=== PATIENT | female | born 1970 | race Caucasian/White ===

== ENCOUNTER 2016-06-30 14:40 | Emergency (ER) | payer OTHER ==
[~2016-06-30] VITALS: Wt 128.0 kg
[~2016-06-30 14:40] MED LIST: BENA20TA48 PO; D-ME473S18 PO; IBUP-1542 PO; OMEP20CA16 PO
[2016-06-30] MEDS ORDERED: LIDOCAINE 1% (MDV) 20 ML INJ SC ONE (19:00)
[2016-06-30] MEDS ORDERED: HYDROCODONE/APAP (10/325) TAB PO ONE (19:00)
[2016-06-30] MEDS ORDERED: HYDR-906 PO (20:10)
[2016-06-30] MEDS ORDERED: HYDR25SU23 PR (20:10)
[2016-06-30] MEDS ORDERED: CEPH-443 PO (20:11)
[2016-06-30] MEDS ORDERED: BACTDS PO (20:11)
[2016-06-30] MEDS ORDERED: DOCU-144 PO (20:12)
[2016-06-30] MEDS ORDERED: POLY17PO6 PO (20:12)
--- NOTE | 2016-06-30 20:18 | ERD ---
ER Documentation Chief Complaint Date/Time DATE: 06/30/16 TIME: 20:13 Chief Complaint HEMMRHOIDS FOR THE PAST 4 DAYS. GETTING WORSE WITH PAIN AND MILD BLEEDING HPI This 46-year-old female who presents to emergency department today complaining of hemorrhoids for the past 4 days. Patient states the pain is getting worse and she has had some mild bleeding. She has had some mild constipation because of the pain. Denies any fevers or chills. ROS All systems reviewed and are negative except as per history of present illness. Medications Home Meds Active Scripts Docusate Sodium* (Colace*) 100 Mg Capsule, 100 MG PO TID, #30 CAP Prov:MCKAYLA YOUSSEFC 06/30/16 Polyethylene Glycol* (Miralax*) 17 Gm Powd.pack, 17 GM PO DAILY, #15 Prov:MCKAYLA YOUSSEFC 06/30/16 Sulfamethoxazole-Trimethoprim* (Bactrim* DS) 800-160 Mg Tab, 1 TAB PO BID for 7 Days, TAB Prov:MCKAYLA YOUSSEF PA-C 06/30/16 Cephalexin* (Keflex*) 500 Mg Capsule, 500 MG PO QID for 7 Days, CAP Prov:PROMCKAYLA SHAFERC 06/30/16 Hydrocodone/Acetaminophen ([place] 5-325 Tablet) 1 Each Tablet, 1 TAB PO Q6H Y for PAIN, #20 TAB Prov:MCKAYLA YOUSSEFC 06/30/16 Hydrocortisone Acetate (Anusol-Hc) 25 Mg Supp.rect, 1 SUPP OR BID Y for HEMORROID PAIN/ITCHING, #12 SUPP.RECT Prov:MCKAYLA YOUSSEFC 06/30/16 Dextromethorphan Hb-Promethazine Hcl (Promethazine DM Syrup) 473 Ml Syrup, 10 ML PO Q6H Y for COUGH, #4 OZ Prov:BERNARD ALMANZA MD 02/27/16 Ibuprofen* (Motrin*) 600 Mg Tab, 600 MG PO Q6H Y for PAIN AND OR ELEVATED TEMP, #30 TAB Prov:BERNARD ALMANZA MD 02/27/16 Reported Medications Omeprazole* (Omeprazole*) Unknown Strength Capsule.dr, MG PO DAILY, #30 CAP 02/27/16 Benazepril Hcl* (Benazepril Hcl*) 20 Mg Tablet, 20 MG PO DAILY, TAB 11/04/14 Allergies Allergies: Coded Allergies: ketorolac (Verified Allergy, Unknown, 06/04/16) PMhx/Soc History of Surgery: No Anesthesia Reaction: No Hx Neurological Disorder: No Hx Respiratory Disorders: No Hx Cardiac Disorders: No Hx Psychiatric Problems: No Hx Miscellaneous Medical Probl: No Hx Alcohol Use: No Hx Substance Use: No Hx Tobacco Use: No Smoking Status: Never smoker Physical Exam Vitals Vital Signs Date Time Temp Pulse Resp B/P Pulse Ox O2 Delivery O2 Flow Rate FiO2 06/30/16 16:35 98.8 101 06/30/16 14:46 99.2 129 20 138/72 97 Physical Exam Const: Obese, mild distress Head: Atraumatic Eyes: Normal Conjunctiva ENT: Normal External Ears, Nose and Mouth. Neck: Full range of motion..~ No meningismus. Resp: Clear to auscultation bilaterally Cardio: Regular rate and rhythm, no murmurs Abd: Soft, non tender, non distended. Normal bowel sounds : Rectal exam with evidence of hemorrhoid on right side of anus with fluctuance and mild bleeding. Localized erythema. Skin: No petechiae or rashes Neur: Awake and alert Psych: Normal Mood and Affect Results 24 hrs Current Medications Medications (Trade) Dose Ordered Sig/Jonathan Route PRN Reason Start Time Stop Time Status Last Admin Dose Admin Acetaminophen/ Hydrocodone Bitart ([place] (10/325)) 1 tab ONCE ONCE PO 06/30/16 19:00 06/30/16 19:01 DC 06/30/16 18:54 Lidocaine (Xylocaine 1% (Mdv) 20 ml) 20 ml ONCE ONCE SC 06/30/16 19:00 06/30/16 19:01 DC Procedures/MDM His is a 46 year old female who presents to the emergency department today for complaints of hemorrhoids for the past 4 days. On physical exam patient did have evidence of a hemorrhoid however I did have concern that this could also possibly be an abscess. I discussed the patient with Dr. Campos and he has seen and evaluated the patient and he feels it is best to open the area. I did explain the risks and benefits to the patient and the patient agree to proceed. Patient has had this in the past was very concerned about pain. Patient was given Hamilton prior to the procedure. Abscess Incision and Drainage with irrigation by me: Location: Rectal Anesthesia: [Local 1% Lidocaine] re-cc Technique: [11 blade scalpel used to make a 1cm incision in the abscess. Irrigated. Disrupted loculations w/ instrumentation] Packing: [None] Complications: [Neurovascularly intact post procedure] Risks and benefits of the procedure were explained to the patient and they agreed to proceed. Area was prepped in the usual sterile fashion. Patient tolerated the procedure well. There were no complications. Patient's skin symptoms have stabilized while they have been evaluated in the department and are appropriate for outpatient care and work up. Exam and w/u not consistent w/ sepsis, deep space infection, or foreign body. 48 hour wound check. Scar minimization instructions given. A small amount of thrombosed hemorrhoid was removed. There was also some purulent drainage that was removed from the area. Patient will be given a prescription for Hamilton for home. Of also given a prescription for Anusol, Keflex and Bactrim, MiraLAX and Colace. At this time the patient is stable for discharge and outpatient management. Patient should follow up with their PCP in the next 1-2 days. They may return to the emergency department sooner for any persistent or worsening of symptoms. Patient understood and agreed with the plan. Departure Diagnosis: Primary Impression: External hemorrhoid, thrombosed Condition: Fair Patient Instructions: Thrombosed Hemorrhoids, Hemorrhoids Additional Instructions: Llame al doctor MAANA y jamal isaak JOE PARA DENTRO DE 1-2 SANCHEZ.Dgale a la secretaria que nosotros le instruimos hacer esta joe.Avise o llame si jeong condicin se empeora antes de la joe. Regresa aqui si peor o no mejor. Use Anusol for pain Take Hamilton for severe pain and otherwise take Tylenol Take Keflex and Bactrim for infection Take MiraLAX and Colace for constipation and stool softener MCKAYLA YOUSSEF PA-C Jun 30, 2016 20:18
[2016-06-30 20:41] VITALS: BP 140/76; PULSE 100; RESP 20; TEMP 98.9
== END 2016-06-30 20:44 | disposition home or self-care (01) ==
LOC: FTE 14:40
DX: K64.5 Perianal venous thrombosis (principal)
CPT/HCPCS: 45005; Z7502; Z7610

== ENCOUNTER 2017-04-03 17:49 | Emergency (ER) | payer OTHER ==
[~2017-04-03] VITALS: Ht 170.2 cm; Wt 127.5 kg
[~2017-04-03 17:49] MED LIST changes: +BACTDS PO; +CEPH-443 PO; +DOCU-144 PO; +HYDR-906 PO; +HYDR25SU23 PR; +POLY17PO6 PO
[2017-04-03 18:09] VITALS: Ht 170.2 cm; Wt 127.5 kg
[2017-04-03] MEDS ORDERED: morphine 4 MG/ML VIAL IV STA ×2 (18:50→21:27)
[2017-04-03] MEDS ORDERED: SOD CHLORIDE 0.9% 1,000 ML IV STA (18:50)
[2017-04-03] MEDS ORDERED: ONDANSETRON 4 MG INJ IV STA ×2 (18:50→21:27)
--- NOTE | 2017-04-03 21:06 | RADRPT ---
PROCEDURE: CT abdomen and pelvis without contrast. CLINICAL INDICATION: Right lower back pain radiating to the front of the abdomen TECHNIQUE: CT scan of the abdomen and pelvis without contrast was performed. Sagittal and coronal reformatted images were obtained from the axial source images. One or more of the following dose re duction techniques were used: Automated exposure control, adjustment of the mA and/or kV according t o patient size, use of iterative reconstruction technique. CTDI = 23.65 mGy; DLP = 1386.47 mGy-cm COMPARISON: None. FINDINGS: Visualized lower thorax: Mild dependent left lower lobe subsegmental atelectasis is present. There is no evidence for pleural effusion. Liver, gallbladder, pancreas and spleen: Hepatomegaly of 21.7 cm is present with normal liver conto ur and attenuation. There is no evidence for a liver mass or ductal dilatation. Multiple calcified gallstones are present without evidence of cholecystitis. No common bile duct abnormality is demon strated. The pancreas is unremarkable. The spleen is normal in size. Adrenal glands and genitourinary system: The adrenal glands are normal bilaterally. The kidneys are normal and size, contour and attenuation with no evidence for masses, calculi or hydronephrosis. T he ureters are unremarkable. No urinary bladder abnormality is demonstrated. Lobulated contour to the uterus likely reflects leiomyomata. A right ovarian/adnexal cyst is approximately 2.4 cm. There is no evidence of free fluid in the cul-de-sac. Gastrointestinal system: The stomach is normal in caliber with no abnormality of significance. The small bowel is normal in caliber with no ileus, obstruction or wall thickening. The appendix and s urrounding fat are within the limits of normal. Severe extensive diverticular disease throughout th e colon is present. A small amount of stranding of the fat posterior to the distal descending colon is concerning for a subtle diverticulitis. There is no evidence of perforation or abscess. Peritoneum, retroperitoneum, lymph nodes and vessels: The abdominal aorta is normal in caliber. The re is no evidence for atherosclerotic calcification. The inferior vena cava is unremarkable. There is no evidence for adenopathy or mass. There is no ascites. No pneumoperitoneum is present. Osseous structures and musculoskeletal findings: There is no fracture, lytic or blastic lesion. Julianna dging syndesmophytes of the visualized thoracic and upper lumbar spine are present. There is no evid ence of acute osseous abnormality No muscular abnormality or soft tissue pathology is present. RPTAT:HJJR IMPRESSION: 1. Extensive diverticular disease of the colon with subtle stranding of the fat posterior to the dis shankar descending segment concerning for diverticulitis without perforation or abscess. 2. Cholelithiasis without evidence of cholecystitis. 3. Hepatomegaly. 4. Simple right ovarian cyst and probable leiomyomatous uterus. Physician Angelo Date Time Electronically viewed and signed by Physician Angelo on 04/03/2017 21:06 JR/
[2017-04-03] MEDS ORDERED: CIPROFLOXACIN 500 MG TAB PO ONE (21:30)
[2017-04-03] MEDS ORDERED: metroNIDAZOLE 500 MG TAB PO ONE (21:30)
[2017-04-03] MEDS ORDERED: METR500T PO (21:42)
[2017-04-03] MEDS ORDERED: HYDR-906 PO (21:42)
[2017-04-03] MEDS ORDERED: ONDA4TAB14 PO (21:42)
[2017-04-03] MEDS ORDERED: CIPR500T4 PO (21:42)
--- NOTE | 2017-04-07 12:18 | ERD ---
ER Documentation Chief Complaint Chief Complaint RT LOWER BACK PAIN RADIATING TO FRONT ABDOMIN X5 DAYS W/VOMITTING HPI Patient is a 46-year-old female presenting to the emergency department with complaints of right lower back pain radiating to her front abdomen intermittently, worsening now. Last menstrual cycle was 03-20-2017. She did have nausea and vomiting initially but this is resolved. She denies fevers, chills, or other symptoms currently. ROS All systems reviewed and are negative except as per history of present illness. Medications Home Meds Active Scripts Ondansetron (Ondansetron Odt) 4 Mg Tab.rapdis, 4 MG PO Q6H Y for NAUSEA AND/OR VOMITING, #10 TAB Prov:BECKY POE PA-C 04/03/17 Hydrocodone/Acetaminophen ([place] 5-325 Tablet) 1 Each Tablet, 1 TAB PO Q6H Y for PAIN, #12 TAB Prov:BECKY POE PA-C 04/03/17 Metronidazole* (Flagyl*) 500 Mg Tablet, 500 MG PO TID for 10 Days, #30 TAB Prov:BECKY POE PA-C 04/03/17 Ciprofloxacin Hcl* (Ciprofloxacin Hcl*) 500 Mg Tablet, 500 MG PO BID for 10 Days , #20 TAB Prov:BECKY POE PA-C 04/03/17 Docusate Sodium* (Colace*) 100 Mg Capsule, 100 MG PO TID, #30 CAP Prov:MCKAYLA YOUSSEF PA-C 06/30/16 Polyethylene Glycol* (Miralax*) 17 Gm Powd.pack, 17 GM PO DAILY, #15 Prov:MCKAYLA YOUSSEF PA-C 06/30/16 Sulfamethoxazole-Trimethoprim* (Bactrim* DS) 800-160 Mg Tab, 1 TAB PO BID for 7 Days, TAB Prov:MCKAYLA YOUSSEF PA-C 06/30/16 Cephalexin* (Keflex*) 500 Mg Capsule, 500 MG PO QID for 7 Days, CAP Prov:MCKAYLA YOUSSEF PA-C 06/30/16 Hydrocodone/Acetaminophen ([place] 5-325 Tablet) 1 Each Tablet, 1 TAB PO Q6H Y for PAIN, #20 TAB Prov:MCKAYLA YOUSSEF PA-C 06/30/16 Hydrocortisone Acetate (Anusol-Hc) 25 Mg Supp.rect, 1 SUPP CA BID Y for HEMORROID PAIN/ITCHING, #12 SUPP.RECT Prov:MCKAYLA YOUSSEF PA-C 06/30/16 Dextromethorphan Hb-Promethazine Hcl (Promethazine DM Syrup) 473 Ml Syrup, 10 ML PO Q6H Y for COUGH, #4 OZ Prov:BERNARD ALMANZA MD 02/27/16 Ibuprofen* (Motrin*) 600 Mg Tab, 600 MG PO Q6H Y for PAIN AND OR ELEVATED TEMP, #30 TAB Prov:BERNARD ALMANZA MD 02/27/16 Reported Medications Omeprazole* (Omeprazole*) Unknown Strength Capsule.dr, MG PO DAILY, #30 CAP 02/27/16 Benazepril Hcl* (Benazepril Hcl*) 20 Mg Tablet, 20 MG PO DAILY, TAB 11/04/14 Allergies Allergies: Coded Allergies: ketorolac (Verified Allergy, Unknown, 06/04/16) PMhx/Soc History of Surgery: Yes (hemorrhoids) Anesthesia Reaction: No Hx Neurological Disorder: No Hx Respiratory Disorders: No Hx Cardiac Disorders: No Hx Psychiatric Problems: No Hx Miscellaneous Medical Probl: No Hx Alcohol Use: No Hx Substance Use: No Hx Tobacco Use: No Smoking Status: Never smoker Physical Exam Vitals Vital Signs Date Time Temp Pulse Resp B/P Pulse Ox O2 Delivery O2 Flow Rate FiO2 04/03/17 18:09 99.1 77 18 154/72 97 Physical Exam Const: Nontoxic, well-appearing female in mild discomfort secondary to pain. Head: Atraumatic Eyes: Normal Conjunctiva ENT: Normal External Ears, Nose and Mouth. Neck: Full range of motion..~ No meningismus. Resp: Clear to auscultation bilaterally Cardio: Regular rate and rhythm, no murmurs Abd: Soft, generalized abdominal tenderness, no rebound tenderness or guarding, no McBurney's point tenderness, non distended. Normal bowel sounds Skin: No petechiae or rashes Back: No midline or flank tenderness Ext: No cyanosis, or edema Neur: Awake and alert Psych: Normal Mood and Affect Result Diagram: 04/03/17190504/03/171905 Results 24 hrs Laboratory Tests Test 04/03/17 19:06 White Blood Count 7.810^3/ul Red Blood Count 4.4310^6/ul Hemoglobin 11.7g/dl Hematocrit 37.7% Mean Corpuscular Volume 85.1fl Mean Corpuscular Hemoglobin 26.4pg Mean Corpuscular Hemoglobin Concent 31.0g/dl Red Cell Distribution Width 14.0% Platelet Count 93942^3/UL Mean Platelet Volume 9.6fl Neutrophils % 49.6% Lymphocytes % 36.8% Monocytes % 7.6% Eosinophils % 4.9% Basophils % 1.0% Nucleated Red Blood Cells % 0.0/100WBC Neutrophils # 3.910^3/ul Lymphocytes # 2.910^3/ul Monocytes # 0.610^3/ul Eosinophils # 0.410^3/ul Basophils # 0.110^3/ul Nucleated Red Blood Cells # 0.010^3/ul Prothrombin Time 12.7Sec Prothrombin Time Ratio 1.0 INR International Normalized Ratio 0.95 Activated Partial Thromboplast Time 28.4Sec Urine Color YELLOW Urine Clarity SLIGHTLY CLOUDY Urine pH 5.0 Urine Specific [place] 1.031 Urine Ketones TRACEmg/dL Urine Nitrite NEGATIVEmg/dL Urine Bilirubin 1+mg/dL Urine Urobilinogen 2+mg/dL Urine Leukocyte Esterase NEGATIVELeu/ul Urine Microscopic RBC 3/HPF Urine Microscopic WBC 2/HPF Urine Squamous Epithelial Cells FEW/HPF Urine Calcium Oxalate Crystals FEW/HPF Urine Mucus MANY/HPF Urine Hemoglobin NEGATIVEmg/dL Urine Glucose NEGATIVEmg/dL Urine Total Protein NEGATIVEmg/dl Sodium Level 146mmol/L Potassium Level 3.9mmol/L Chloride Level 107mmol/L Carbon Dioxide Level 28mmol/L Anion Gap 15 Blood Urea Nitrogen 12mg/dl Creatinine 0.69mg/dl Glucose Level 88mg/dl Calcium Level 8.6mg/dl Total Bilirubin 0.4mg/dl Direct Bilirubin 0.00mg/dl Indirect Bilirubin 0.4mg/dl Aspartate Amino Transf (AST/SGOT) 15IU/L Alanine Aminotransferase (ALT/SGPT) 26IU/L Alkaline Phosphatase 83IU/L Total Protein 7.2g/dl Albumin 4.4g/dl Globulin 2.80g/dl Albumin/Globulin Ratio 1.57 Lipase 124U/L Current Medications Medications (Trade) Dose Ordered Sig/Jonathan Route PRN Reason Start Time Stop Time Status Last Admin Dose Admin Sodium Chloride (NS) 1,000 ml @ 1,000 mls/hr Q1H STAT IV 04/03/17 18:50 04/03/17 19:49 DC 04/03/17 19:11 Morphine Sulfate (morphine) 4 mg ONCE STAT IV 04/03/17 18:50 04/03/17 18:51 DC 04/03/17 19:11 Ondansetron HCl (Zofran Inj) 4 mg ONCE STAT IV 04/03/17 18:50 04/03/17 18:51 DC 04/03/17 19:11 Morphine Sulfate (morphine) 4 mg ONCE STAT IV 04/03/17 21:27 04/03/17 21:29 DC 04/03/17 21:42 Ondansetron HCl (Zofran Inj) 4 mg ONCE STAT IV 04/03/17 21:27 04/03/17 21:29 DC 04/03/17 21:46 Metronidazole (Flagyl) 500 mg ONCE ONCE PO 04/03/17 21:30 04/03/17 21:31 DC 04/03/17 22:10 Ciprofloxacin (Cipro) 500 mg ONCE ONCE PO 04/03/17 21:30 04/03/17 21:31 DC 04/03/17 22:10 Procedures/MDM 46-year-old female presents to the emergency department with complaints of abdominal pain with radiation to the back. Patient was placed on a gurney, IV line established, she was given IV morphine, IV Zofran, IV fluids. On reevaluation she was feeling improved. CBC showed no leukocytosis or anemia. Chemistry panel was within normal limits. Urinalysis showed no signs of proteinuria or urinary tract infection. CT scan of the abdomen was concerning for diverticulitis, which the patient has never been diagnosed with before. She is given p.o. Flagyl and p.o. Cipro first doses here, and given prescriptions as an outpatient. Believe the patient is suitable for outpatient management since she had no leukocytosis, pain is improved after treatment, she was afebrile. I discussed the case with the attending physician, Dr. Ham Sargent who is in agreement. No evidence of life-threatening pathology at time of discharge. Pt/family in agreement with discharge plan/diagnosis. Pt/family advised to return immediately with any new or worsening symptoms. Follow-up with primary care physician within the next 1-2 days. Disclaimer: Inadvertent spelling and grammatical errors are likely due to EHR/ dictation software use and do not reflect on the overall quality of patient care. Also, please note that the electronic time recorded on this note does not necessarily reflect the actual time of the patient encounter. PROCEDURE: CT abdomen and pelvis without contrast. CLINICAL INDICATION: Right lower back pain radiating to the front of the abdomen TECHNIQUE: CT scan of the abdomen and pelvis without contrast was performed. Sagittal and coronal reformatted images were obtained from the axial source images. One or more of the following dose reduction techniques were used: Automated exposure control, adjustment of the mA and/or kV according to patient size, use of iterative reconstruction technique. CTDI = 23.65 mGy; DLP = 1386.47 mGy-cm COMPARISON: None. FINDINGS: Visualized lower thorax: Mild dependent left lower lobe subsegmental atelectasis is present. There is no evidence for pleural effusion. Liver, gallbladder, pancreas and spleen: Hepatomegaly of 21.7 cm is present with normal liver contour and attenuation. There is no evidence for a liver mass or ductal dilatation. Multiple calcified gallstones are present without evidence of cholecystitis. No common bile duct abnormality is demonstrated. The pancreas is unremarkable. The spleen is normal in size. Adrenal glands and genitourinary system: The adrenal glands are normal bilaterally. The kidneys are normal and size, contour and attenuation with no evidence for masses, calculi or hydronephrosis. The ureters are unremarkable. No urinary bladder abnormality is demonstrated. Lobulated contour to the uterus likely reflects leiomyomata. A right ovarian/adnexal cyst is approximately 2.4 cm. There is no evidence of free fluid in the cul-de-sac. Gastrointestinal system: The stomach is normal in caliber with no abnormality of significance. The small bowel is normal in caliber with no ileus, obstruction or wall thickening. The appendix and surrounding fat are within the limits of normal. Severe extensive diverticular disease throughout the colon is present. A small amount of stranding of the fat posterior to the distal descending colon is concerning for a subtle diverticulitis. There is no evidence of perforation or abscess. Peritoneum, retroperitoneum, lymph nodes and vessels: The abdominal aorta is normal in caliber. There is no evidence for atherosclerotic calcification. The inferior vena cava is unremarkable. There is no evidence for adenopathy or mass. There is no ascites. No pneumoperitoneum is present. Osseous structures and musculoskeletal findings: There is no fracture, lytic or blastic lesion. Bridging syndesmophytes of the visualized thoracic and upper lumbar spine are present. There is no evidence of acute osseous abnormality No muscular abnormality or soft tissue pathology is present. RPTAT:HJJR IMPRESSION: 1. Extensive diverticular disease of the colon with subtle stranding of the fat posterior to the distal descending segment concerning for diverticulitis without perforation or abscess. 2. Cholelithiasis without evidence of cholecystitis. 3. Hepatomegaly. 4. Simple right ovarian cyst and probable leiomyomatous uterus. Physician Angelo Date Time Electronically viewed and signed by Marcello Sheriff Physician on 04/03/2017 21:06 Departure Diagnosis: Primary Impression: Diverticulitis Diverticulitis site: unspecified part of intestinal tract Diverticulitis bleeding: without bleeding Diverticulitis complication: unspecified complication status Qualified Code: K57.92 - Diverticulitis of intestine without bleeding, unspecified complication status, unspecified part of intestinal tract Condition: Fair Patient Instructions: Diverticulitis Additional Instructions: No mas mejor en 2-3 capps, regresar. Mas peor en 24 horas, regresear rapidamente. Ir a doctor primario en 1-2 capps. Usar instrucciones cuando analilia medicamento. BECKY POE PA-C Apr 07, 2017 12:18
== END 2017-04-03 22:43 | disposition home or self-care (01) ==
LOC: FTE 17:49
DX: K57.92 Diverticulitis of intestine, part unspecified, without perforation or abscess without bleeding (principal); R10.9 Unspecified abdominal pain
CPT/HCPCS: 36415; 74176; 80053; 81001; 83690; 85025; 85610; 85730; 96374; 96375; 96376; J2270; J2405; J7030; Z7502; Z7610; 81003

== ENCOUNTER 2017-08-24 18:51 | Inpatient (IN) | END 2017-08-26 14:16 | disposition home or self-care (01) | DRG 392 ==

== ENCOUNTER 2019-01-07 03:01 | Emergency (ER) | payer OTHER ==
[~2019-01-07] VITALS: Ht 175.3 cm; Wt 129.1 kg
[~2019-01-07 03:01] MED LIST changes: -BACTDS PO; -BENA20TA48 PO; +BENA40TA56 PO; -CEPH-443 PO; +CIPR500T4 PO; -D-ME473S18 PO; -DOCU-144 PO; +HYDR-4011 PO; -HYDR-906 PO; -HYDR25SU23 PR; -IBUP-1542 PO; -POLY17PO6 PO; +RANI150T35 PO; +TRAM50TA2 PO
[2019-01-07 03:06] VITALS: Ht 175.3 cm; Wt 129.1 kg
[2019-01-07] MEDS ORDERED: ONDANSETRON 4 MG INJ IV STA (03:55)
[2019-01-07] MEDS ORDERED: LACTATED RINGER'S 1,000 ML IV STA (03:55)
[2019-01-07] MEDS ORDERED: FAMOTIDINE 20 MG INJ IV STA (03:55)
[2019-01-07] MEDS ORDERED: morphine 4 MG/ML VIAL IV STA (03:55)
[2019-01-07] MEDS ORDERED: LIDOCAINE/MYLANTA 40 ML BTL PO STA (03:57)
[2019-01-07] MEDS ORDERED: CEFTRIAXONE 1 GM/50 ML (PMX) 50 ML IVPB ONE (05:00)
--- NOTE | 2019-01-07 05:10 | ERD ---
ER Documentation Chief Complaint Chief Complaint high blood pressure in triage, abdominal pain with nausea. HPI This is a 48-year-old female with a history of hypertension, gastritis and gastric ulcers who presents to the ER for evaluation of abdominal pain and nausea. The patient states that this pain does feel similar to previous gastritis flareups. She localizes the pain to the midportion of her abdomen and denies any radiation of the pain. Patient denies any chest pain or shortness of breath or heart palpitations or diaphoresis or diarrhea associated with this. She states that usually her antacids helped however tonight she is having more pain than normal. ROS All systems reviewed and are negative except as per history of present illness. Medications Home Meds Active Scripts Tramadol HCl (Tramadol HCl) 50 Mg Tablet, 50 MG PO Q6 PRN for PAIN, #20 TAB Prov:BECKY POE PA-C 07/10/18 Ciprofloxacin Hcl* (Ciprofloxacin Hcl*) 500 Mg Tablet, 500 MG PO BID for 5 Days, #10 TAB Prov:VALENTÍN LOPEZ MD 08/26/17 Reported Medications Benazepril Hcl* (Benazepril Hcl*) 40 Mg Tablet, 40 MG PO DAILY, #30 TAB 08/24/17 Omeprazole* (Omeprazole*) 20 Mg Capsule.dr, 20 MG PO DAILY, #30 CAP 08/24/17 Allergies Allergies: Coded Allergies: ketorolac (Verified Allergy, Unknown, 08/24/17) PMhx/Soc History of Surgery: Yes (, hemorrhoids) Anesthesia Reaction: No Hx Neurological Disorder: No Hx Respiratory Disorders: No Hx Cardiac Disorders: Yes Hx Psychiatric Problems: No Hx Miscellaneous Medical Probl: No Hx Alcohol Use: Yes (social) Hx Substance Use: No Hx Tobacco Use: No Smoking Status: Never smoker Physical Exam Vitals Vital Signs Date Temp Pulse Resp B/P (MAP) Pulse Ox O2 O2 Flow FiO2 Time Delivery Rate 01/07/19 67 18 173/88 100 Room Air 05:27 (116) 01/07/19 98.0 60 18 175/92 93 Room Air 03:35 (119) 01/07/19 97.7 75 20 203/113 100 03:06 (143) Physical Exam INITIAL VITAL SIGNS: Reviewed by me GENERAL: The patient is well developed and appropriate for usual state of health in no apparent distress HEENT: Pupils equal, round, and reactive to light. EOMI. There is no scleral icterus. NECK: C-spine is soft and supple, there is no meningismus. There is no cervical lymphadenopathy. LUNGS: Clear to auscultation bilaterally. There are no rales, wheezes or rhonchi. HEART: Regular rate and rhythm, no murmurs, clicks, rubs or gallops. ABDOMEN: Epigastric tenderness to palpation, otherwise soft, non-tender, non- distended. There are bowel sounds in all four quadrants. No rebound or guarding. EXTREMITIES: There is no peripheral cyanosis or edema. No focal swelling or erythema. NEUROLOGICAL: The patient moves all four extremities with 5/5 strength. Cranial nerves II - XII are intact. Normal gait. Alert and oriented SKIN: There is no apparent rash or petechiae. HEME/LYMPHATIC: There is no evidence of excessive bruising or lymphedema. PSYCHIATRIC: The patient does not appear anxious or depressed. Result Diagram: 01/07/19 0350 01/07/19 0350 Results 24 hrs Laboratory Tests Test 01/07/19 03:50 01/07/19 04:02 01/07/19 04:04 White Blood Count 10.7 10^3/ul Red Blood Count 4.56 10^6/ul Hemoglobin 13.4 g/dl Hematocrit 40.3 % Mean Corpuscular Volume 88.4 fl Mean Corpuscular Hemoglobin 29.4 pg Mean Corpuscular Hemoglobin Concent 33.3 g/dl Red Cell Distribution Width 12.6 % Platelet Count 364 10^3/UL Mean Platelet Volume 9.1 fl Immature Granulocytes % 0.700 % Neutrophils % 78.0 % Lymphocytes % 16.9 % Monocytes % 3.1 % Eosinophils % 0.8 % Basophils % 0.5 % Nucleated Red Blood Cells % 0.0 /100WBC Immature Granulocytes # 0.070 10^3/ul Neutrophils # 8.4 10^3/ul Lymphocytes # 1.8 10^3/ul Monocytes # 0.3 10^3/ul Eosinophils # 0.1 10^3/ul Basophils # 0.1 10^3/ul Nucleated Red Blood Cells # 0.0 10^3/ul Urine Color RED Urine Clarity CLOUDY Urine pH 8.0 Urine Specific [place] 1.023 Urine Ketones TRACE mg/dL Urine Nitrite NEGATIVE mg/dL Urine Bilirubin NEGATIVE mg/dL Urine Urobilinogen NEGATIVE mg/dL Urine Leukocyte Esterase TRACE Rah/ul Urine Microscopic RBC 24 /HPF Urine Microscopic WBC 23 /HPF Urine Squamous Epithelial Cells MANY /HPF Urine Bacteria FEW /HPF Urine Mucus FEW /HPF Urine Hemoglobin 3+ mg/dL Urine Glucose NEGATIVE mg/dL Urine Total Protein 2+ mg/dl Sodium Level 141 mmol/L Potassium Level 3.6 mmol/L Chloride Level 104 mmol/L Carbon Dioxide Level 25 mmol/L Anion Gap 12 Blood Urea Nitrogen 16 mg/dl Creatinine 0.60 mg/dl Est Glomerular Filtrat Rate mL/min > 60 mL/min Glucose Level 169 mg/dl Calcium Level 9.4 mg/dl Total Bilirubin 0.7 mg/dl Direct Bilirubin 0.00 mg/dl Indirect Bilirubin 0.7 mg/dl Aspartate Amino Transf (AST/SGOT) 20 IU/L Alanine Aminotransferase (ALT/SGPT) 25 IU/L Alkaline Phosphatase 61 IU/L Troponin I < 0.012 ng/ml Total Protein 7.8 g/dl Albumin 4.3 g/dl Globulin 3.50 g/dl Albumin/Globulin Ratio 1.22 Lipase 83 U/L POC Beta HCG, Qualitative NEGATIVE Bedside Urine pH (LAB) 7.5 Bedside Urine Protein (LAB) 2+ Bedside Urine Glucose (UA) Negative Bedside Urine Ketones (LAB) 1+ Bedside Urine Blood 3+ Bedside Urine Nitrite (LAB) Negative Bedside Urine Leukocyte Esterase (L Negative Current Medications Medications Dose Sig/Jonathan Start Time Status Last (Trade) Ordered Route PRN Stop Time Admin Dose Reason Admin Lactated 1,000 ml @ Q1H STAT 01/07/19 DC 01/07/19 Ringer's 1,000 mls/hr IV 03:55 01/07/19 04:02 04:54 Morphine 4 mg ONCE STAT 01/07/19 DC 01/07/19 Sulfate IV 03:55 01/07/19 04:02 (morphine) 03:56 Ondansetron 4 mg ONCE STAT 01/07/19 DC 01/07/19 HCl (Zofran IV 03:55 01/07/19 04:02 Inj) 03:56 Famotidine 20 mg ONCE STAT 01/07/19 DC 01/07/19 (Pepcid Iv) IV 03:55 01/07/19 04:02 03:56 40 ml ONCE STAT 01/07/19 DC 01/07/19 Miscellaneous PO 03:57 01/07/19 04:02 Medication 03:58 (Gi Cocktail (2)) Ceftriaxone 50 ml @ ONCE ONCE 01/07/19 DC 01/07/19 Sodium 100 mls/hr IVPB 05:00 01/07/19 05:03 05:29 Procedures/MDM X-ray Abdomen 2V Interpreted by me: Free Air: [None] Bowel Gas: [Nonspecific] Soft Tissue: [Normal] This 48-year-old female presents to the ER for evaluation of abdominal pain. The patient does have a history of gastric ulcers and on my exam had tenderness to palpation in epigastric region. The patient's x-ray does not reveal any free air under the diaphragm. I doubt perforation. The patient was given IV Pep kailey, Zofran, morphine, and lactated Ringer's. Her lab work does not reveal any severe abnormalities. Her lipase is normal, troponin is negative. It does states she is feeling much better at this time and I will be discharged home with a prescription for Zantac, [place] for breakthrough pain, and she was advised to follow-up with her PCP as outpatient return to the ER if her symptoms worsen. Departure Diagnosis: Primary Impression: Acute gastritis Additional Impression: Abdominal pain Condition: RENETTA Anand DO Jan 07, 2019 05:10
[2019-01-07 05:27] VITALS: BP 173/88; PULSE 67; RESP 18
== END 2019-01-07 05:50 | disposition home or self-care (01) ==
LOC: E/R 03:01
DX: K29.70 Gastritis, unspecified, without bleeding (principal); I10 Essential (primary) hypertension
CPT/HCPCS: 36415; 74019; 80053; 81001; 81025; 83690; 84484; 85025; 96361; 96365; 96375; J0696; J2270; J2405; J7120; Z7502; Z7610; 81003; 93005